=== PATIENT | female | born 1950 | race Caucasian/White ===

== ENCOUNTER 2020-03-24 11:26 | Outpatient (CLI) | payer MEDICARE, BC, SELFPAY ==
--- NOTE | ~2020-03-24 | US_ITS ---
EXAMINATION: 1. US FNA w image guidance 2. US FNA additional DATE: 03/24/2020 13:00 INDICATION: Multinodular goiter. TECHNIQUE: The procedure and its benefits, risks, and benefits were discussed with the patient. Risks specifical ly discussed included bleeding. The patient verbalized understanding of the risks and agreed to proce ed. The neck was prepped and draped in the usual sterile manner. 1% lidocaine was used for local ane sthesia. Five passes were made with a 25G needle into the lesion in right thyroid lobe. Appropriate needle location was documented with continuous sonographic guidance. Five passes were made with a 25G needle into the lesion in left thyroid lobe. Appropriate needle loc ation was documented with continuous sonographic guidance. There were no immediate complications. The patient understood to call the ordering physician for results after a week and a half and verbalized that understanding. FINDINGS: Grayscale ultrasound images demonstrate needles advanced into a 2.7 cm nodule in right thyroid lobe f or biopsy. Grayscale ultrasound images demonstrate needles advanced into a 2.1 cm nodule in left thyr oid lobe. IMPRESSION: 1. Ultrasound-guided fine needle aspiration of a right thyroid nodule. 2. Ultrasound-guided fine-needle aspiration of a left thyroid nodule. Reviewed, dictated and finalized at location A. IMPRESSION: 1. Ultrasound-guided fine needle aspiration of a right thyroid nodule. 2. Ultrasound-guided fine-needle aspiration of a left thyroid nodule.
--- NOTE | ~2020-03-24 | US_ITS ---
EXAMINATION: US thyroid DATE: 03/24/2020 12:01 INDICATION: Nontoxic goiter, unspecified. TECHNIQUE: Multiple ultrasound images of the thyroid were obtained. COMPARISON: None. FINDINGS: The right thyroid lobe measures 8.4 x 3.9 x 3.2 cm. The left thyroid lobe measures 8.2 x 4.2 x 2.2 c m. In the right thyroid lobe, there is a 2.7 cm solid, isoechoic, lnzin-jjmt-kufd nodule with smooth margin without echogenic foci (TI-RADS TR3). In the right thyroid lobe, there is a 2.5 cm solid, hyp erechoic, oynhf-murd-gwvc nodule with smooth margin without echogenic foci (TR3). In the left thyroid lobe, there is a 2.1 cm solid, hypoechoic, bfdcn-oqon-vqha wide nodule with smooth margin without ec hogenic foci (TR4). In the left thyroid lobe, there is a 1.8 cm solid, hyperechoic, opsso-ifod-ssvr n odule with ill-defined margin without echogenic foci (TR3). IMPRESSION: 1. Multinodular goiter. Ultrasound-guided fine-needle aspiration of 2 nodules is recommended. Reviewed, dictated and finalized at location A. IMPRESSION: 1. Multinodular goiter. Ultrasound-guided fine-needle aspiration of 2 nodules i s recommended.
== END 2020-03-24 11:27 | disposition home or self-care (01) ==
LOC: ANHIMG 11:37
PROVIDERS: PCP Internal Medicine; Visit Provider Internal Medicine Endocrinology, Diabetes & Metabolism
DX: E04.9 Nontoxic goiter, unspecified (principal)
CPT/HCPCS: 10005; 10006; 76536; 88108; 88173; 88305

== ENCOUNTER 2020-09-21 10:28 | Outpatient (CLI) | payer MEDICARE, BC, SELFPAY ==
--- NOTE | ~2020-09-21 | US_ITS ---
EXAMINATION: US thyroid EXAM DATE: 09/21/2020 10:55 INDICATION: E04.9 - Nontoxic goiter, unspecified. TECHNIQUE: Multiple grayscale and Doppler images of the thyroid were obtained (by a technologist who performed the scan) and subsequently reviewed. Individual nodules and recommendations may be reporte d in accordance with TI-RADS system as designated by the 2017 ACR White Paper TI-RADS committee. Comp arison is made to prior examination from 03/24/2020. FINDINGS: The right thyroid lobe measures 8.4 x 5.1 x 3.0 cm, the left measuring 8.0 x 4.3 x 3.4 cm. Dimensions are significantly enlarged. There are multiple thyroid nodules again noted. Largest nodule in the right thyroid lobe measures 2.6 x 2.6 x 2.6 centimeters, stable. This was previ ously biopsied. Largest left thyroid lobe nodule measuring 1.6 x 2.0 x 1.6 cm, stable. This was previ ously biopsied. Correlate with prior pathology results. IMPRESSION: Multinodular goiter unchanged. Reviewed, dictated and finalized at location A. E [employer]
== END 2020-09-21 10:29 | disposition home or self-care (01) ==
PROVIDERS: PCP Internal Medicine; Visit Provider Internal Medicine Endocrinology, Diabetes & Metabolism
DX: E04.2 Nontoxic multinodular goiter (principal)
CPT/HCPCS: 76536